=== PATIENT | female | born 1950 | race Caucasian/White ===

== ENCOUNTER 2018-01-28 22:05 | Inpatient (IN) | payer OTHER ==
[~2018-01-28] VITALS: Ht 160 cm; Wt 83.5 kg
[2018-01-28] MEDS ORDERED: LOSARTAN POTASS25 MG (22:11)
== END 2018-01-31 14:10 | disposition designated cancer center or children's hospital (05) | DRG 282 ==
LOC: ER 22:05 → SURH 01-29 09:21 → MEDI 01-29 09:21 → SURH 01-29 10:16
PROC: B246ZZZ Ultrasonography of Right and Left Heart (ICD-10-PCS; principal; 2018-01-29)
PROC: 4A12X4Z Monitoring of Cardiac Electrical Activity, External Approach (ICD-10-PCS; 2018-01-29)
DX: I21.4 Non-ST elevation (NSTEMI) myocardial infarction (principal); I24.9 Acute ischemic heart disease, unspecified; I10 Essential (primary) hypertension

== ENCOUNTER 2021-02-26 11:39 | Outpatient (CLI) | payer OTHER ==
[~2021-02-26 11:39] MED LIST: LOSARTAN POTASS25 MG
== END 2021-02-26 14:24 | disposition home or self-care (01) ==
LOC: MAMO-SONO 11:39
PROVIDERS: ATTEND Family Medicine
DX: N60.11 Diffuse cystic mastopathy of right breast (principal); Z87.898 Personal history of other specified conditions; N60.12 Diffuse cystic mastopathy of left breast; Z12.31 Encounter for screening mammogram for malignant neoplasm of breast

== ENCOUNTER 2023-05-03 05:40 | Day surgery (SDC) | payer OTHER ==
[~2023-05-03] VITALS: Ht 162.6 cm; Wt 79.4 kg
[~2023-05-03 05:40] MED LIST changes: +METFORMIN PO; +[UNRECOGNIZED DRUG - OTHER] PO
== END 2023-05-03 11:45 | disposition home or self-care (01) ==
LOC: CIR.AMB 05:40
PROVIDERS: ATTEND Orthopaedic Surgery Hand Surgery
DX: M65.232 Calcific tendinitis, left forearm (principal); I10 Essential (primary) hypertension; Z20.822 Contact with and (suspected) exposure to COVID-19; Z88.6 Allergy status to analgesic agent